=== PATIENT | male | born 1975 | race Two or more races ===

== ENCOUNTER → 2017-09-25 | Outpatient (CLI) | payer BC ==
--- NOTE | 2017-09-25 09:05 | REP ---
Left hand four views: Of note the patient has history of psoriasis. The patient complains of PIP joint pain. Mineralization and joint spaces are normal, particularly the PIP joints. On the lateral view there is a large calcification over the dorsal surface of the CMC articulations. This is not visible on the other view and is of uncertain significance. There are may be a degenerative ligamentous calcification. However, CT might be considered for further evaluation. There are no other calcifications. No fracture or dislocation. Impression: Negative left hand except for a calcification along the dorsal surface of the CMC articulations. CT might be considered for further evaluation. The PIP articulations are unremarkable. Signed by Dirk Sofia MD 09/25/2017 08:57 A
== END ==
LOC: M ADAMS 08:16
PROVIDERS: ATTEND Family Medicine
DX: M18.9 Osteoarthritis of first carpometacarpal joint, unspecified (principal); M25.542 Pain in joints of left hand

== ENCOUNTER → 2017-10-15 | Outpatient (REF) | payer BC | LOC: M SFHCADAM 13:38 | PROVIDERS: ATTEND Family Medicine | DX: R73.01 Impaired fasting glucose (principal) ==

== ENCOUNTER → 2018-07-02 | Outpatient (REF) | payer BC ==
[2018-07-02 13:49] LABS: ESTIMATED AVERAGE GLUCOSE 131 MG/DL (60-110); HEMOGLOBIN A1c 6.2 %
== END ==
LOC: M SFHCPLAZ 08:04
DX: R73.03 Prediabetes (principal)
CPT/HCPCS: 83036